=== PATIENT | male | born 1935 | race Two or more races ===

== ENCOUNTER 2023-11-27 11:47 | Emergency (ER) | payer MEDICARE ==
[~2023-11-27] VITALS: Ht 154.9 cm; Wt 53.4 kg
[2023-11-27 13:07] VITALS: PULSE 91; RESP 16; O2SAT 95
[2023-11-27] MEDS: SODIUM CHLORIDE 0.9% 1,000 ML IV ONE (13:24)
[2023-11-27 13:40] LABS: Basophils # (auto) 0 10 ^3/uL (0-0.2); Basophils % (auto) 0.3 % (0.0-2.0); Eosinophils # (auto) 0 10 ^3/uL (0-0.8); Eosinophils % (auto) 0.1 % (0.0-7.0); Hematocrit 45.9 % (41.0-53.0); Hemoglobin 15.7 g/dL (13.5-17.5); Lymphocytes # (auto) 3.2 10 ^3/uL (0.4-5.4); Lymphocytes % (auto) 29.5 % (10.0-50.0); Mean Corpuscular Hemoglobin 31.9 pg (28.0-32.0); Mean Corpuscular Hgb Conc. 34.2 g/dL (32.0-36.0); Monocytes # (auto) 0.7 10 ^3/uL (0-1.3); Monocytes % (auto) 6.4 % (0.0-12.0); Neutrophils # (auto) 6.9 10 ^3/uL (1.6-8.6); Neutrophils % (auto) 63.7 % (37.0-80.0); Nucleated Red Blood Cells % 0.1 %; Platelet Count (auto) 213 10^3/uL (140-450); Red Blood Cells 4.93 10^6/uL (4.5-5.90); Red Cell Distribution Width 13.8 % (11.8-14.3); White Blood Cell 10.8 10^3/uL (4.4-10.8)
[2023-11-27 13:47] LABS: Chloride 104 mmol/L (98-107); Sodium 139 mmol/L (136-145)
[2023-11-27 13:48] LABS: Anion Gap 13 (5-15); Calcium 9.9 mg/dL (8.7-10.4); Carbon Dioxide 22 mmol/L (20-31)
[2023-11-27 13:53] LABS: BUN/Creatinine Ratio 22.7 (10.0-20.0); Blood Urea Nitrogen 25 mg/dL (9-23); Glucose 120 mg/dL (74-106)
[2023-11-27 15:29] VITALS: BP 104/81; PULSE 91; RESP 16; TEMP 98.6; O2SAT 100
== END 2023-11-27 15:32 | disposition home or self-care (01) ==
LOC: ER 11:47
DX: F03.A0 Unspecified dementia, mild, without behavioral disturbance, psychotic disturbance, mood disturbance, and anxiety (principal); E11.9 Type 2 diabetes mellitus without complications; F12.90 Cannabis use, unspecified, uncomplicated
CPT/HCPCS: 36415; 80048; 82962; 85025; 96360; 99283; J7030